=== PATIENT | female | born 1975 | race Caucasian/White ===

== ENCOUNTER 2023-03-11 10:15 | Emergency (ER) | payer BC ==
[~2023-03-11] VITALS: Ht 170.2 cm; Wt 108.3 kg
[2023-03-11] MEDS ORDERED: PERCOCET PO (10:30)
[2023-03-11] MEDS ORDERED: KETOROLAC 60MG 2ML VIAL IM ONE (13:45)
[2023-03-11 13:55] VITALS: BP 132/80; TEMP 97.8; O2SAT 99
== END 2023-03-11 14:09 | disposition home or self-care (01) ==
LOC: M ED 10:15
DX: S99.912A Unspecified injury of left ankle, initial encounter (principal); W10.8XXA Fall (on) (from) other stairs and steps, initial encounter; Y92.009 Unspecified place in unspecified non-institutional (private) residence as the place of occurrence of the external cause; Y93.89 Activity, other specified; Y99.9 Unspecified external cause status; Z88.0 Allergy status to penicillin; Z88.5 Allergy status to narcotic agent; Z79.1 Long term (current) use of non-steroidal anti-inflammatories (NSAID)
CPT/HCPCS: 73610; 96372; 99284; J1885

== ENCOUNTER 2024-02-29 03:45 | Emergency (ER) | payer SELFPAY ==
[~2024-02-29 03:45] MED LIST: PERCOCET PO
== END 2024-02-29 03:49 | disposition left against medical advice (07) ==
LOC: M ED 03:45
DX: Z53.21 Procedure and treatment not carried out due to patient leaving prior to being seen by health care provider (principal)

== ENCOUNTER 2024-11-30 16:16 | Emergency (ER) | payer SELFPAY ==
[~2024-11-30] VITALS: Ht 170.2 cm; Wt 97.7 kg
[2024-11-30 16:18] VITALS: BP 132/83; TEMP 97.3; O2SAT 99
== END 2024-11-30 17:36 | disposition left against medical advice (07) ==
LOC: M ED 16:16
DX: Z53.21 Procedure and treatment not carried out due to patient leaving prior to being seen by health care provider (principal)